=== PATIENT | male | born 1975 | race Caucasian/White ===

== ENCOUNTER 2021-01-02 10:02 | Emergency (ER) | payer OTHER, SELFPAY ==
[2021-01-02 10:04] VITALS: BP 155/88; PULSE 88; RESP 16; TEMP 36.3; O2SAT 99; BMI 28.3
[2021-01-02] MEDS: 0.9% Normal Saline 1,000 ML 1000 ML IV (11:23)
[2021-01-02 11:30] LABS: Absolute Lymphocyte Count 1.27 X10^3/uL (0.83-4.51); Absolute Neutrophil Count 7.9 X10^3/uL (2.0-7.7); Basophil# 0.03 X10^3/uL; Basophil% 0.3 % (0-1); Hematocrit 40.2 % (40-54); Hemoglobin 13.3 g/dL (13.0-16.5); Lymphocyte # 1.27 X10^3/ul (4.0); Lymphocyte % 12.8 % (19-41); Mean Corp Hgb Conc 33.1 g/dL (32-36); Mean Corpuscular Hgb 28.2 pg (27.0-32.0); Mean Corpuscular Volume 85.2 fL (80-94); Mean Platelet Vol. 9.9 fl (6.2-12.0); NRBC Flagged by Analyzer 0 % (0-5); Neutrophil # 7.91 X10^3/uL (2.7-7.7); Neutrophil % 79.5 % (47-70); Platelet Count 272 K/mm3 (150-450); RBC Distribution Width CV 12.7 % (11.6-14.6); RBC Distribution Width SD 39.6 fl (35.1-43.9); Red Blood Count 4.72 M/mm3 (4.6-6.2)
[2021-01-02 11:54] LABS: ALB/GLOB Ratio 0.7 RATIO (0.9-2.4); AST(SGOT) 18 U/L (15-37); Alanine Aminotransfer ALT/SGPT 37 U/L (16-61); Albumin, Serum 3.5 g/dL (3.2-5.0); Alkaline Phosphatase 96 U/L (45-117); Anion Gap 6 (5-15); BUN 13 mg/dL (7-18); BUN/Creat Ratio 13.8 RATIO (10-20); Calcium,Total 9.1 mg/dL (8.5-10.1); Chloride 101 mmol/L (98-107); Creatinine, Serum 0.94 mg/dL (0.70-1.30); EST Glomerular Filtration Rate 92 mL/min (>60); Est Glom Filt Rate - Afr Amer 111 mL/min (>60); Estimated Creatinine Clearance 123.12 ml/min; Globulin 4.7 g/dL (2.2-4.2); Glucose 95 mg/dL (74-106); Potassium 3.7 mmol/L (3.5-5.1); Protein, Total 8.2 g/dL (6.4-8.2); Sodium Level 134 mmol/L (136-145)
[2021-01-02 12:00] LABS: CPK Total, Creatine Kinase 59 U/L (39-308)
[2021-01-02 12:27] VITALS: BP 135/88; O2SAT 99
--- NOTE | 2021-01-02 12:35 | ED.DCSUM_ITS ---
History of Present Illness Chief Complaint: Weakness Narrative: Presents with lightheadedness diffuse generalized weakness for 3 days. No fever or chills no cough or congestion he has generalized myalgias and he feels like his arms and legs are swollen. He has no shortness of breath no chest pain no back pain or tearing sensation he has no pleuritic component. No cough or congestion no headache or neck pain. Past medical history: Negative Medications: Reviewed Social history: Noncontributory Review of systems: All systems negative except as indicated General: Denies: Fever. Generalized weakness Eyes: Denies: Visual changes - bilaterally ENT: Denies: Rhinorrhea, Sore throat Cardiovascular: Denies: Chest pain Respiratory: Denies: Dyspnea, Cough Gastrointestinal: Denies: Abdominal pain, Nausea, Vomiting Genitourinary: Denies: Dysuria Musculoskeletal: No myalgias Skin: Denies: Rash Neurological: Denies: Headache, no focal weakness, no sensory deficit Psych: Reports: negative Hematologic: Denies: Easy bruising, Easy bleeding Physical exam General: Well nourished, Well developed, he appears in slight distress Head: Normocephalic, Atraumatic Eyes: Conjunctiva not pale ENT: Dry mucous membranes Neck: Supple, Nontender, No lymphadenopathy Cardiovascular: Regular rate, Regular rhythm Respiratory: No distress, CTA bilaterally Abdomen: Soft, Nontender, Nondistended Back: Nontender, Normal Inspection. Negative for: CVA tenderness Extremities: Nontender, No edema. Normal strength and sensation. Skin: Normal color, No rash Neurological: Alert, Normal Strength, Normal Sensation Psychological: Normal affect Past Medical History - Allergies and Home Meds Allergies/Adverse Reactions: Allergies bupropion [From Wellbutrin] Allergy (Verified 01/02/21 10:04) Michelle Primary Care Physician: [place] [Primary Care Provider] - Smoking Status: Never smoker Physical Exam Vital Signs/Narrative: Vital Signs Temp Pulse Resp BP Pulse Ox 01/02/21 12:27 135/88 H 99 01/02/21 10:04 97.3 F L 88 16 155/88 H 99 Diagnostic/Tx/Re-eval - Medical Decision Making Patient has an unremarkable emergency department work-up he appears well after IV fluids he significantly improved. He will be discharged in stable condition if anything worsens or changes he is to return to the ED. I ambulated around the ED, he is able to ambulate and he tells me he feels much improved. ED Disposition - Plan for ED Patient: Disposition: Home or Assisted Living Diagnosis: Dehydration, Generalized weakness Instructions: ED Weakness (Uncertain Cause), ED Dehydration (Adult) [facility]errals[facility] [Primary Care Provider] - 3-5 Days
== END 2021-01-02 13:24 | disposition home or self-care (01) ==
PROVIDERS: Emergency Provider Emergency Medicine
DX: E86.0 Dehydration (principal); R53.1 Weakness
CPT/HCPCS: 80053; 82550; 85025; 87426; 96360; 99282; J7030; A4216

== ENCOUNTER 2023-02-22 09:21 | Emergency (ER) | payer OTHER, SELFPAY ==
[2023-02-22 09:21] VITALS: BP 153/85; PULSE 76; RESP 18; TEMP 36.1; O2SAT 97; BMI 29.7
--- NOTE | 2023-02-22 09:24 | NURSING ---
NO OLD EKGS
[2023-02-22 09:28] VITALS: BMI 29.7
--- NOTE | 2023-02-22 09:34 | EKG12_ITS ---
Test Reason : CP Blood Pressure : / mmHG Vent. Rate : 069 BPM Atrial Rate : 069 BPM P-R Int : 168 ms QRS Dur : 110 ms QT Int : 384 ms P-R-T Axes : 000 005 012 degrees QTc Int : 411 ms Normal sinus rhythm Normal ECG Confirmed by CLYDE SCHWAB, JAYA ([id number]), editor publications NORMA SEARS ([id number]) on 02/26/2023 8:42:36 AM Referred By: Confirmed By:JAYA TANG MD
--- NOTE | 2023-02-22 09:35 | ED.VIS.CHEST ---
HPI History of Present Illness Chief Complaint: Chest Pain Detail of Chief Complaint: Bilateral superior anterior chest pain Informant: patient Onset/Context/Timing Onset: Days Activity at onset: sudden Timing: Intermittent and Lasts (Unable to tell me the duration because he initially stated it is continuous, which it is not.) Quality: Positive for Pain Location: - (Superior anterior bilateral chest) Current Severity: Mild Maximum Severity: Moderate Worsened By: - (When he thinks about) Relieved By: - (When he is not thinking about) Associated Symptoms: Positive for - (There is no radiation of the discomfort); Negative for Nausea, Vomiting, Diaphoresis, Dyspnea, Cough, Fever, Lightheadedness, Acid Reflux or Palpitations Narrative Narrative: Patient is a 47-year-old healthy male on no medications who presents with bilateral anterior superior chest pain has been intermittent. He cannot quantitate or qualitate the pain. There is no radiation or associated symptoms. There is no risk factors for coronary disease. There is no risk factors for PE. He denies intolerance to greasy or fried foods. He denies history of reflux, hiatal hernia or peptic ulcer disease. He denies black or maroon-colored stool. He denies leg pain, swelling discoloration. He contacted his physician who recommended come to the emergency department. Prior Similar Symptoms: No Recent Illness/Hospitalization: No CVD Risk Factors: Negative for Hypertension, Diabetes, Hypercholesterolemia, Family History 1' </=55 or Smoking PE Risk Factors: Negative for Recent Travel/Surgery, Recent Immobilization, Prior DVT or PE, Cancer or OCP + Smoking + >/=35 TAD Risk Factors: Negative for Marfan's Syndrome, Hypertension or Family History PFSH PFS Medical History Anxiety Depression Home Medications NK 01/02/21 [History Last Taken Unknown] Allergy/AdvReac Type Severity Reaction Status Date / Time bupropion [From Wellbutrin] Allergy Hives Verified 02/22/23 09:26 Surgical History no surgical history no surgical history Social History (Updated 02/22/23 @ 09:[address] Jhoan Martin MD) household members: spouse and children Smoking Status: Never smoker substance use type: does not use ROS ROS ED Constitutional Constitutional ED: Denies chills, fever(s), subjective, sweats or weight loss Eyes Eyes: Reports none ENT ENT ED: Denies ear pain, rhinorrhea or sore throat Cardiovascular Cardiovascular: Reports as per HPI; Denies orthopnea or paroxysmal nocturnal dyspnea Respiratory/Chest Respiratory/Chest: Denies cough, dyspnea, dyspnea on exertion, orthopnea or paroxysmal nocturnal dyspnea Gastrointestinal Gastrointestinal: Denies abdominal pain, melena, nausea, vomiting or other Genitourinary Genitourinary ED: Denies dysuria or hematuria Musculoskeletal Musculoskeletal: Denies arthralgias, back pain, myalgias or neck pain Integumentary Denies rash Neurologic Neurologic: Denies paresthesias or weakness Endocrine Endocrinology: Denies cold intolerance or heat intolerance Hematologic/Lymphatic Hematologic/Lymphatic: Denies easy bleeding or easy bruising EXAM Physical Exam Const Vital Signs: 02/22/23 09:21 Temperature 96.9 F L Temperature Source Temporal Pulse Rate 76 Respiratory Rate 18 Blood Pressure 153/85 H Blood Pressure Mean 107 Pulse Ox 97 Oxygen Delivery Method Room Air Positive well nourished and well developed General Appearance ED: well developed and NAD; Negative for pallor HEENT Reports TM's clear and moist mucous membranes normocephalic and atraumatic Tympanic Membrane ED: Yes TM's clear Eyes PERRL and EOMs intact bilaterally General Eye ED: Negative for pale conjunctiva or scleral icterus Neck no lymphadenopathy, supple and no JVD Chest Wall inspection of chest normal and palpation of chest normal Resp normal respiratory effort and clear to auscultation bilaterally Cardio regular rate, regular rhythm, S1 normal heart sound, S2 normal heart sound and no murmurs Peripheral Pulses: pulses 2+ throughout GI normal to inspection, nondistended, normoactive bowel sounds, soft to palpation, non-tender, non-distended and no masses; Negative for hepatosplenomegaly GI Narrative: Negative Harrington sign. Back/Spine no CVA tenderness Extremity Negative for normal to inspection Extremity Narrative: There is no asymmetry, swelling, discoloration, leg vein distention, palpable cords or tenderness along the distribution of the deep venous system. Patient does have a scar due to bowl injury lateral mid right calf. Neuro oriented x3, CN's II-XII intact bilaterally, no sensory deficits noted and gait normal Sensorium / Orientation: awake Psych mental status grossly normal Skin no rashes or lesions noted and no wounds General Skin Exam: Negative for jaundice or pallor Heart Score History: Slightly/Non-Suspicious ECG: Normal Age: >45 - <65 years Risk Factors: No Risk Factors Score: 1 MDM MDM MDM Narrative Medical decision making narrative: Patient presents with very atypical pain. Suspect this is anxiety related. Will obtain EKG, chest x-ray and troponin to evaluate for cardiac versus noncardiac etiology versus anxiety. History & Record Review Additional record(s) reviewed:: Prior ED visit (December 2020 for dehydration) and Prior labs Lab Data Attestation: I reviewed the patient's lab results. Lab results narrative: CBC is normal and unchanged from prior. Basic metabolic panel is normal. Troponin is normal with days of symptoms. With a normal EKG and normal troponin cardiac etiology has been ruled out. In light of patient's history suspect this is due to anxiety. Labs: Laboratory Results - last 24 hr 02/22/23 02/22/23 09:35 09:35 WBC 6.7 RBC 5.45 Hgb 15.2 Hct 45.2 MCV 82.9 MCH 27.9 MCHC 33.6 RDW Std Deviation 39.6 RDW Coeff of Alysa 13.2 Plt Count 266 MPV 9.7 Sodium 138 Potassium 3.8 Chloride 106 Carbon Dioxide 26.0 Anion Gap 6 BUN 14 Creatinine 1.07 Estim Creat Clear Calc 105.91 Est GFR (MDRD) Af Amer 96 Est GFR (MDRD) Non-Af 79 BUN/Creatinine Ratio 13.1 Glucose 107 H Calcium 9.1 Troponin I High Sens 4 Radiography Chest X-Ray - ED: 2 View and Read by ED Physician (Chest x-ray is normal. Cardiac silhouette size normal. Perihilar region normal. Lung parenchyma normal. Osseous structures normal. This was independently reviewed interpreted by me at 0953.) Diagnostic Testing: Clinical Impression(s) from Imaging Studies Chest X-Ray 02/22/23 09:47 IMPRESSION: Normal x-ray examination of the chest. Electronically Signed: Prasad Pak MD at 10:00 EDT , EKG Initial EKG: Attestation: I personally reviewed and interpreted this EKG as follows: Interpretation: Sinus Rhythm (EKG is normal with a rate of 69. [place] interval is 160 ms per cures duration 110 ms. QT duration 384 ms. Dalton is normal.) Prior: No Prior Differential Diagnosis Chest pain/SOB: pulmonary embolism Reason(s) PE less likely: Positive for PERC negative, not tachycardic and not hypoxic, pneumothorax Reason(s) pneumothorax less likely: Positive for bilateral breath sounds and [employer] withhout PTX, pneumonia Reason(s) pneumonia less likely: Positive for no infiltrate on CXR, no noted fever and symptoms not consistent with acute infection, aortic dissection Reason(s) Aortic dissection less likely:: Positive for normal vascular exam, no history of HTN, normal neurological exam, no significant risk factors for dissection, no widened mediastinum on CXR, pain not sudden onset, no ripping/tearing pain, no pain to back and blood pressure appropriate in ED and CHF Reason(s) CHF less likely: Positive for no significant peripheral edema, no orthopnea and no evidence of fluid overload on CXR Discharge Plan Triage Chief Complaint: Chest Pain ED Provider: Jhoan Martin Dx/Rx/DC Orders Clinical Impression: Anterior chest wall pain, Elevated BP without diagnosis of hypertension Instructions: ED Chest Pain, Noncardiac, ED Chest Pain, Uncertain Cause, ED Hypertension, To Be Confirmed Prescriptions: No Action NK [facility] Provider: [facility]errals: [facility] [Primary Care Provider] - 1-2 Weeks Activity Restrictions/Additional Instructions: Recommend follow-up with your doctor in 1 to 2 weeks for recheck blood pressure. The cause of your chest pain is not cardiac or pulmonary. This may be related to anxiety. Disposition Disposition: Home, Self Care
[2023-02-22 09:42] LABS: Hematocrit 45.2 % (40-54); Hemoglobin 15.2 g/dL (13.0-16.5); Mean Corp Hgb Conc 33.6 g/dL (32-36); Mean Corpuscular Hgb 27.9 pg (27.0-32.0); Mean Corpuscular Volume 82.9 fL (80-94); Mean Platelet Vol. 9.7 fl (6.2-12.0); Platelet Count 266 K/mm3 (150-450); RBC Distribution Width CV 13.2 % (11.6-14.6); RBC Distribution Width SD 39.6 fl (35.1-43.9); Red Blood Count 5.45 M/mm3 (4.6-6.2); White Blood Count 6.7 K/mm3 (4.4-11.0)
--- NOTE | 2023-02-22 09:47 | RAD_ITS ---
STUDY: X-RAY CHEST REASON FOR EXAM: Male, 47 years old. Superior anterior bilateral chest pain TECHNIQUE: PA and lateral views of the chest. COMPARISON: None. FINDINGS: EKG electrodes are seen. Hyperinflation. The lungs are clear. There is no demonstrated pleural abnormality. Normal size heart. Normal mediastinum and rogerio. Normal visualized pulmonary arteries. Normal visualized aortic arch and descending thoracic aorta. Normal visualized thoracic spine. Normal visualized ribs, clavicles, and shoulders. There is no demonstrated abnormality of the visualized soft tissue structures of the upper abdomen. RAD/Chest PA and Lateral IMPRESSION: Normal x-ray examination of the chest. Electronically Signed: Prasad Pak MD at 10:00 EDT ,
[2023-02-22 10:08] LABS: Anion Gap 6 (5-15); BUN 14 mg/dL (7-18); BUN/Creat Ratio 13.1 RATIO (10-20); Calcium,Total 9.1 mg/dL (8.5-10.1); Chloride 106 mmol/L (98-107); Creatinine, Serum 1.07 mg/dL (0.70-1.30); EST Glomerular Filtration Rate 79 mL/min (>60); Est Glom Filt Rate - Afr Amer 96 mL/min (>60); Estimated Creatinine Clearance 105.91 ml/min; Glucose 107 mg/dL (74-106); Potassium 3.8 mmol/L (3.5-5.1); Sodium Level 138 mmol/L (136-145); Troponin-I HS 4 pg/mL (3.0-78.0)
[2023-02-22 10:30] VITALS: BP 133/98; PULSE 63; RESP 15; O2SAT 97
== END 2023-02-22 10:36 | disposition home or self-care (01) ==
LOC: ED 10:34
PROVIDERS: Emergency Provider Emergency Medicine; PCP Internal Medicine; Visit Provider Emergency Medicine
DX: R07.89 Other chest pain (principal); R03.0 Elevated blood-pressure reading, without diagnosis of hypertension
CPT/HCPCS: 71046; 80048; 84484; 85027; 93005; 99284; A4216